=== PATIENT | male | born 1965 | race Caucasian/White ===

== ENCOUNTER 2022-08-27 11:20 | Emergency (ER) | payer OTHER ==
[~2022-08-27] VITALS: Ht 175.3 cm; Wt 82.1 kg
--- NOTE | 2022-08-27 11:20 | NUR ---
RECEIVED PT 57 YRS MALE CAME BY NINA S/P DIANA AND MAYA TODAY NO WEEKNESS NO DIFFORMITY
--- NOTE | 2022-08-27 11:25 | NUR ---
SEEN BY DR BRIZUELA
--- NOTE | 2022-08-27 11:39 | NUR ---
X RAY AT BED SIDE
--- NOTE | 2022-08-27 11:56 | NUR ---
Cornelius mcgee in ED - 08/27/22 at 1158 by KELLIADE [phone] - ARNOLDO STEELE. COULDN'T GIVE PTS
--- NOTE | 2022-08-27 11:58 | NUR ---
- RAMONE STEELE/CAREGIVER. COULDN'T GIVE PTS
[2022-08-27] MEDS ORDERED: LORAZEPAM INJ 2 MG/ML VIAL ONE ×3 (12:14→13:56)
[2022-08-27] MEDS ORDERED: LORAZEPAM INJ 2 MG/ML VIAL IV ONE ×3 (12:30→14:00)
--- NOTE | 2022-08-27 12:56 | NUR ---
ATIVAN 0.5 MG X 2 GIVEN FOR UNABLRE TO DO X RAY
--- NOTE | 2022-08-27 14:00 | NUR ---
AWAITING DIPOSITION OF PATIENT BY .
[2022-08-27] MEDS ORDERED: ASPIRIN 325 MG TABLET ONE (14:24)
--- NOTE | 2022-08-27 15:54 | NUR ---
CALLED [facility]. ETA 60 MIN.
--- NOTE | 2022-08-27 15:56 | NUR ---
Patient discharged to home in stable condition. Written and verbal after care instructions given. Patient verbalizes understanding of instruction.
[2022-08-27 22:04] VITALS: BP 135/90
== END 2022-08-27 22:04 | disposition home or self-care (01) ==
LOC: ER 11:22
DX: S16.1XXA Strain of muscle, fascia and tendon at neck level, initial encounter (principal); S30.0XXA Contusion of lower back and pelvis, initial encounter; S50.01XA Contusion of right elbow, initial encounter; S60.221A Contusion of right hand, initial encounter; G20 Parkinson's disease; Z88.8 Allergy status to other drugs, medicaments and biological substances; W18.2XXA Fall in (into) shower or empty bathtub, initial encounter; Y93.89 Activity, other specified; Y92.89 Other specified places as the place of occurrence of the external cause; Y99.8 Other external cause status
CPT/HCPCS: 99285; 72125; 96374; 96376; 73080; 73120; 73560 ×2; 70450; 72131; J2060 ×3